=== PATIENT | female | born 1945 | race Caucasian/White ===

== ENCOUNTER → 2020-02-18 | Outpatient (CLI) | payer MEDICARE ==
[~2020-02-18] MED LIST: ADVAIR 250-501 EACH INH; ASPIRIN81 MG PO; COMBIVENT RESPIM4 GM IH; FLUTICASONE PRO16 GM; FUROSEMIDE20 MG PO; FUROSEMIDE40 MG PO; KLOR-CON 88 MEQ PO; LOSARTAN POTASS25 MG PO; METFORMIN HCL1000 M1 PO; TAMOXIFEN CITRA10 MG PO; THEOPHYLLINE600 MG PO; TUDORZA PRESS400 MCG INH; VENLAFAXINE H37.5 M2 PO
== END ==
LOC: DX 11:28
PROVIDERS: ATTEND Internal Medicine
DX: R13.13 Dysphagia, pharyngeal phase (principal)
CPT/HCPCS: 74230; 92526; 92611; U0002

== ENCOUNTER → 2020-02-23 | Outpatient (CLI) | payer MEDICARE | LOC: US 13:42 | PROVIDERS: ATTEND Otolaryngology | DX: E04.1 Nontoxic single thyroid nodule (principal) | CPT/HCPCS: 10005; 88112; 88172; 88173; 88305 ==